=== PATIENT | female | born 1955 | race Caucasian/White ===

== ENCOUNTER 2020-09-24 14:26 | Inpatient (IN) | payer MEDICAID, MEDICARE ==
[~2020-09-24] VITALS: Ht 162.6 cm; Wt 98.9 kg
[2020-09-24] MEDS: ALBUTEROL 6.7GM HFA INHALER ORI SCH ×2 (00:24→20:25)
[2020-09-24] MEDS ORDERED: AZITHROMYCIN 500 MG in DEXT 5% WATER 250 ML IV SCH (14:45)
[2020-09-24] MEDS ORDERED: CEFTRIAXONE 1 G PREMIX 50 ML IV ONE (14:45)
[2020-09-24] MEDS ORDERED: LACTATED RINGERS 1,000 ML IV SCH ×2 (14:45)
[2020-09-24] MEDS ORDERED: DEXAMETHASONE 10 MG/ML VIAL IV ONE (15:00)
[2020-09-24 15:44] LABS: BASOPHILS % 0.6 % (0.0-2.0); EOSINOPHILS % 0.5 % (0.0-5.0); HEMATOCRIT. 40.5 % (36.0-48.0); LYMPHOCYTES % 18.3 % (20.0-50.0); MEAN CORPUSCULAR HEMOGLOBIN 31.8 pg (28.0-32.0); MEAN CORPUSCULAR VOLUME 91.9 fL (81.0-99.0); MEAN PLATELET VOLUME 9.9 fl (7.4-10.4); MONOCYTES % 4.8 % (2.0-8.0); NEUTROPHILS % 75.8 % (40.0-76.0); PLATELET 131 x1000/uL (130-400); RED BLOOD CELL COUNT 4.41 mill/uL (4.2-5.4); RED CELL DISTRIBUTION WIDTH 12.9 % (11.6-14.6)
[2020-09-24 15:51] LABS: CHLORIDE 96 mEq/L (98-107)
[2020-09-24 15:58] LABS: D-DIMER 1.71 mg/L FEU (<0.50); PROTHROMBIN TIME 10.4 sec (9.6-11.0)
[2020-09-24 16:00] LABS: CREATINE KINASE 55 IU/L (26-192)
[2020-09-24] MEDS ORDERED: ALBUTEROL 6.7GM HFA INHALER ORI PRN (18:45)
[2020-09-24] MEDS ORDERED: NOREPINEPHRINE 8 MG in DEXT 5% WATER 242 ML IV PRN (18:45)
[2020-09-24] MEDS ORDERED: DEXTROSE 50% WATER 50ML SYRINGE IV PRN (18:45)
[2020-09-24] MEDS ORDERED: ACETAMINOPHEN 325MG TABLET PO PRN (18:45)
[2020-09-24] MEDS ORDERED: NITROGLYCERIN 0.4MG TABLET SL SL PRN (18:45)
[2020-09-24] MEDS ORDERED: ENOXAPARIN 40MG/0.4ML SYR SUBCUT SCH (18:45)
[2020-09-24] MEDS ORDERED: CLONIDINE 0.1MG TABLET PO PRN (18:45)
[2020-09-24] MEDS ORDERED: ONDANSETRON HCL 4MG/2ML INJ IV PRN (18:45)
[2020-09-24 19:52] LABS: VITAMIN B12 SERUM 1999 pg/mL (211-911)
[2020-09-24 20:18] LABS: FOLIC ACID (FOLATE) SERUM > 20.00 ng/mL (>5.38)
[2020-09-24] MEDS ORDERED: ZOLPIDEM TARTRATE 5MG TABLET PO PRN (21:00)
[2020-09-24] MEDS: ENOXAPARIN 30MG/0.3ML SYR SUBCUT SCH (21:00)
[2020-09-24] MEDS: GUAIFENESIN/DM 600MG/30MG ER TAB 12HR PO SCH (21:57)
[2020-09-24] MEDS: FAMOTIDINE 20MG TABLET PO SCH (21:57)
[2020-09-24] MEDS: INSULIN LISPRO 100 UNITS/ML SUBCUT SCH (21:58)
[2020-09-24] MEDS: BLOOD SUGAR DIAGNOSTIC STRIP TEST SCH (21:58)
[2020-09-24] MEDS: ASCORBIC ACID 500 MG TABLET PO SCH (21:58)
[2020-09-24] MEDS ORDERED: INSULIN GLARGINE UD 100 UNITS/ML SYR SUBCUT SCH (22:00)
[2020-09-25] VITALS (57 sets, daily range): BP systolic 51–148; BP diastolic 25–129
[2020-09-25] MEDS: ALBUTEROL 6.7GM HFA INHALER ORI SCH ×2 (00:24→16:20)
[2020-09-25 01:07] LABS: CREATINE KINASE 45 IU/L (26-192)
[2020-09-25 01:08] LABS: CREATINE KINASE MB FRACTION < 1.0 ng/mL (0.5-3.6)
[2020-09-25 06:06] LABS: BASOPHILS % 0.2 % (0.0-2.0); EOSINOPHILS % 0.1 % (0.0-5.0); HEMATOCRIT. 39.6 % (36.0-48.0); HEMOGLOBIN. 13.5 g/dL (12.0-16.0); LYMPHOCYTES % 17.5 % (20.0-50.0); MEAN CORPUSCULAR HEMOGLOBIN 31.9 pg (28.0-32.0); MEAN CORPUSCULAR VOLUME 93.4 fL (81.0-99.0); MEAN PLATELET VOLUME 9.4 fl (7.4-10.4); MONOCYTES % 4.6 % (2.0-8.0); NEUTROPHILS % 77.6 % (40.0-76.0); PLATELET 111 x1000/uL (130-400); RED BLOOD CELL COUNT 4.24 mill/uL (4.2-5.4); RED CELL DISTRIBUTION WIDTH 13.3 % (11.6-14.6)
[2020-09-25 06:19] LABS: CHLORIDE 97 mEq/L (98-107)
[2020-09-25 06:24] LABS: PHOSPHORUS 3.1 mg/dL (2.5-4.9)
[2020-09-25] MEDS: BLOOD SUGAR DIAGNOSTIC STRIP TEST SCH ×4 (06:26→20:44)
[2020-09-25 06:27] LABS: CREATINE KINASE 49 IU/L (26-192)
[2020-09-25 06:30] LABS: CREATINE KINASE MB FRACTION < 1.0 ng/mL (0.5-3.6)
[2020-09-25] MEDS: INSULIN LISPRO 100 UNITS/ML SUBCUT SCH ×4 (06:30→21:05)
[2020-09-25 07:41] LABS: CLARITY URINE CLOUDY (CLEAR); COLOR URINE YELLOW (YELLOW); KETONES URINE NEGATIVE (NEGATIVE); LEUKOCYTE ESTERASE URINE 1+ (NEGATIVE); NITRITE URINE NEGATIVE (NEGATIVE); OCCULT BLOOD URINE NEGATIVE (NEGATIVE); PH URINE 5.5 (4.5-8.0); PROTEIN URINE NEGATIVE (NEGATIVE); SPECIFIC GRAVITY URINE 1.016 (1.005-1.030); UROBILINOGEN URINE 0.2 E.U./dL (0.2-1.0)
[2020-09-25] MEDS ORDERED: CEFTRIAXONE 1 G PREMIX 50 ML IV SCH (08:00)
[2020-09-25 08:07] LABS: *AMPHETAMINES SCREEN URINE NEGATIVE (NEGATIVE); *BARBITURATES SCREEN URINE NEGATIVE (NEGATIVE); *BENZODIAZEPINES SCREEN URINE NEGATIVE (NEGATIVE); *COCAINE SCREEN URINE NEGATIVE (NEGATIVE); CANNABINOID URINE SCREEN NEGATIVE (NEGATIVE)
[2020-09-25 08:08] LABS: METHADONE URINE SCREEN NEGATIVE (NEGATIVE); OPIATES URINE SCREEN NEGATIVE (NEGATIVE); PHENCYCLIDINE URINE SCREEN NEGATIVE (NEGATIVE)
[2020-09-25] MEDS: AZITHROMYCIN 500 MG in DEXT 5% WATER 250 ML IV SCH (08:29)
[2020-09-25] MEDS: DEXAMETHASONE 10 MG/ML VIAL IV SCH (08:30)
[2020-09-25] MEDS: ASCORBIC ACID 500 MG TABLET PO SCH ×2 (08:30→20:45)
[2020-09-25] MEDS: GUAIFENESIN/DM 600MG/30MG ER TAB 12HR PO SCH ×2 (08:30→20:45)
[2020-09-25] MEDS: ZINC SULFATE 220 MG ( 50 ) CAPSULE PO SCH (08:30)
[2020-09-25] MEDS: FAMOTIDINE 20MG TABLET PO SCH ×2 (08:30→20:45)
[2020-09-25] MEDS: ASPIRIN 325MG EC TABLET PO SCH (08:30)
[2020-09-25] MEDS: ENOXAPARIN 30MG/0.3ML SYR SUBCUT SCH ×2 (08:31→20:45)
[2020-09-25] MEDS: CHOLECALCIFEROL (D3) 1000 UNIT TABLET PO SCH (08:31)
[2020-09-25 08:32] LABS: BG BASE EXCESS -4.8 mmol/L (-2.0-2.0); BG CARBOXYHEMOGLOBIN 0.2 % (0.5-1.5); BG DEOXYHEMOGLOBIN 2.8 % (0.0-5.0); BG FRACTION INSPIRED OXYGEN 100; BG HCO3 ACT 20.3 mmol/L (22.0-26.0); BG METHEMOGLOBIN 0.3 % (0.0-1.5); BG OXYGEN SATURATION 97.2 % (92.0-98.5); BG OXYHEMOGLOBIN 96.7 % (94.0-97.0); BG PCO2 37.8 mmHg (35.0-45.0); BG PH 7.348 (7.350-7.450); BG PO2 92.8 mmHg (75.0-100.0); BG SAMPLE SITE RIGHT RADIAL; BG TOTAL HEMOGLOBIN 13.7 g/dL (12.0-18.0); BG VENT MODE VENT - CPAP
[2020-09-25] MEDS ORDERED: AZITHROMYCIN 500 MG in DEXT 5% WATER 250 ML IV SCH (09:00)
[2020-09-25] MEDS ORDERED: AMLO5TAB4 MT (11:00)
[2020-09-25] MEDS ORDERED: MICAR4 MT (11:00)
[2020-09-25] MEDS ORDERED: METF-874 MT (11:01)
[2020-09-25] MEDS: CEFTRIAXONE 1,000 MG in DEXTROSE 5% WATER 50 ML IV SCH (11:43)
[2020-09-25] MEDS: KETOROLAC 15MG/ML VIAL IV PRN (18:42)
[2020-09-25] MEDS ORDERED: INSULIN GLARGINE UD 100 UNITS/ML SYR SUBCUT SCH (22:00)
[2020-09-26] VITALS (82 sets, daily range): BP systolic 34–160; BP diastolic 24–85
[2020-09-26] MEDS: BLOOD SUGAR DIAGNOSTIC STRIP TEST SCH ×4 (05:42→20:38)
[2020-09-26] MEDS: INSULIN LISPRO 100 UNITS/ML SUBCUT SCH ×4 (06:06→21:41)
[2020-09-26 08:54] LABS: BG CARBOXYHEMOGLOBIN 0.4 % (0.5-1.5); BG DEOXYHEMOGLOBIN 22.7 % (0.0-5.0); BG FRACTION INSPIRED OXYGEN 100; BG HCO3 ACT 20.7 mmol/L (22.0-26.0); BG METHEMOGLOBIN 0.2 % (0.0-1.5); BG OXYGEN SATURATION 77.2 % (92.0-98.5); BG OXYHEMOGLOBIN 76.7 % (94.0-97.0); BG PCO2 45.3 mmHg (35.0-45.0); BG PH 7.277 (7.350-7.450); BG PO2 41.3 mmHg (75.0-100.0); BG SAMPLE SITE RIGHT RADIAL; BG TOTAL HEMOGLOBIN 13.1 g/dL (12.0-18.0); BG VENT MODE HIGH FLOW
[2020-09-26] MEDS ORDERED: LIDOCAINE HCL/PF 1% 2ML VIAL ONE (09:30)
[2020-09-26] MEDS: ASCORBIC ACID 500 MG TABLET PO SCH ×2 (09:45→21:37)
[2020-09-26] MEDS: CHOLECALCIFEROL (D3) 1000 UNIT TABLET PO SCH (09:45)
[2020-09-26] MEDS: GUAIFENESIN/DM 600MG/30MG ER TAB 12HR PO SCH ×2 (09:45→21:37)
[2020-09-26] MEDS: ZINC SULFATE 220 MG ( 50 ) CAPSULE PO SCH (09:45)
[2020-09-26] MEDS: ASPIRIN 325MG EC TABLET PO SCH (09:45)
[2020-09-26] MEDS: FAMOTIDINE 20MG TABLET PO SCH ×2 (09:45→21:37)
[2020-09-26] MEDS: ENOXAPARIN 30MG/0.3ML SYR SUBCUT SCH ×2 (09:45→21:38)
[2020-09-26] MEDS: AZITHROMYCIN 500 MG in DEXT 5% WATER 250 ML IV SCH (09:45)
[2020-09-26] MEDS: DEXAMETHASONE 10 MG/ML VIAL IV SCH (09:45)
[2020-09-26] MEDS: CEFTRIAXONE 1,000 MG in DEXTROSE 5% WATER 50 ML IV SCH (09:46)
[2020-09-26 10:51] LABS: BG BASE EXCESS -1.7 mmol/L (-2.0-2.0); BG CARBOXYHEMOGLOBIN 0.4 % (0.5-1.5); BG DEOXYHEMOGLOBIN 8.9 % (0.0-5.0); BG FRACTION INSPIRED OXYGEN 100; BG HCO3 ACT 23.5 mmol/L (22.0-26.0); BG METHEMOGLOBIN 0.3 % (0.0-1.5); BG OXYHEMOGLOBIN 90.4 % (94.0-97.0); BG PCO2 41.4 mmHg (35.0-45.0); BG PH 7.372 (7.350-7.450); BG PO2 60.3 mmHg (75.0-100.0); BG SAMPLE SITE RIGHT RADIAL; BG TOTAL HEMOGLOBIN 13.9 g/dL (12.0-18.0); BG VENT MODE MASK - BIPAP
[2020-09-26] MEDS: INSULIN GLARGINE UD 100 UNITS/ML SYR SUBCUT SCH ×2 (12:13→22:21)
[2020-09-26] MEDS: LORAZEPAM 0.5MG TABLET PO PRN (12:44)
[2020-09-26 12:45] LABS: HEMATOCRIT. 37.9 % (36.0-48.0); HEMOGLOBIN. 13.1 g/dL (12.0-16.0); MEAN CORPUSCULAR HEMOGLOBIN 31.8 pg (28.0-32.0); MEAN CORPUSCULAR VOLUME 92.2 fL (81.0-99.0); MEAN PLATELET VOLUME 9.3 fl (7.4-10.4); PLATELET 110 x1000/uL (130-400); RED BLOOD CELL COUNT 4.11 mill/uL (4.2-5.4)
[2020-09-26 12:54] LABS: CHLORIDE 98 mEq/L (98-107)
[2020-09-26 14:40] LABS: PLATELET ESTIMATE SLIGHTLY DECREASED
[2020-09-26] MEDS: DOPAMINE 400MG/250ML PREMIX 250 ML IV PRN (15:09)
[2020-09-27] VITALS (98 sets, daily range): BP systolic 100–167; BP diastolic 37–148
[2020-09-27] MEDS: DOPAMINE 400MG/250ML PREMIX 250 ML IV PRN ×2 (02:46→16:26)
[2020-09-27] MEDS: BLOOD SUGAR DIAGNOSTIC STRIP TEST SCH ×4 (05:37→21:33)
[2020-09-27 05:38] LABS: HEMATOCRIT. 40.1 % (36.0-48.0); HEMOGLOBIN. 14.2 g/dL (12.0-16.0); MEAN CORPUSCULAR HEMOGLOBIN 32.2 pg (28.0-32.0); MEAN CORPUSCULAR VOLUME 90.8 fL (81.0-99.0); MEAN PLATELET VOLUME 9.3 fl (7.4-10.4); PLATELET 118 x1000/uL (130-400); RED BLOOD CELL COUNT 4.42 mill/uL (4.2-5.4); RED CELL DISTRIBUTION WIDTH 12.9 % (11.6-14.6)
[2020-09-27 05:43] LABS: CHLORIDE 101 mEq/L (98-107)
[2020-09-27] MEDS: LORAZEPAM 0.5MG TABLET PO PRN ×2 (05:53→16:50)
[2020-09-27] MEDS: INSULIN LISPRO 100 UNITS/ML SUBCUT SCH ×4 (06:23→21:48)
[2020-09-27 07:37] LABS: NUCLEATED RED BLOOD CELLS 1 /100 WBC
[2020-09-27 07:38] LABS: PLATELET ESTIMATE DECREASED
[2020-09-27] MEDS: ENOXAPARIN 30MG/0.3ML SYR SUBCUT SCH ×2 (08:37→21:42)
[2020-09-27] MEDS: ZINC SULFATE 220 MG ( 50 ) CAPSULE PO SCH (08:37)
[2020-09-27] MEDS: CHOLECALCIFEROL (D3) 1000 UNIT TABLET PO SCH (08:37)
[2020-09-27] MEDS: ASPIRIN 81MG TABLET PO SCH (08:37)
[2020-09-27] MEDS: FAMOTIDINE 20MG TABLET PO SCH ×2 (08:37→20:51)
[2020-09-27] MEDS: DEXAMETHASONE 10 MG/ML VIAL IV SCH (08:37)
[2020-09-27] MEDS: GUAIFENESIN/DM 600MG/30MG ER TAB 12HR PO SCH ×2 (08:37→20:51)
[2020-09-27] MEDS: ASCORBIC ACID 500 MG TABLET PO SCH ×2 (08:37→20:51)
[2020-09-27] MEDS: ALBUTEROL 6.7GM HFA INHALER ORI SCH ×2 (08:37→15:00)
[2020-09-27] MEDS: AZITHROMYCIN 500 MG in DEXT 5% WATER 250 ML IV SCH (08:38)
[2020-09-27] MEDS: CEFTRIAXONE 1,000 MG in DEXTROSE 5% WATER 50 ML IV SCH (10:32)
[2020-09-27] MEDS: INSULIN GLARGINE UD 100 UNITS/ML SYR SUBCUT SCH ×2 (10:33→21:44)
[2020-09-27 12:22] LABS: BG BASE EXCESS 1.3 mmol/L (-2.0-2.0); BG CARBOXYHEMOGLOBIN 0.5 % (0.5-1.5); BG DEOXYHEMOGLOBIN 5.1 % (0.0-5.0); BG FRACTION INSPIRED OXYGEN 100; BG HCO3 ACT 26.5 mmol/L (22.0-26.0); BG METHEMOGLOBIN 0.2 % (0.0-1.5); BG OXYGEN SATURATION 94.9 % (92.0-98.5); BG OXYHEMOGLOBIN 94.2 % (94.0-97.0); BG PCO2 43.8 mmHg (35.0-45.0); BG PH 7.399 (7.350-7.450); BG PO2 73.6 mmHg (75.0-100.0); BG SAMPLE SITE RIGHT RADIAL; BG TOTAL HEMOGLOBIN 15.2 g/dL (12.0-18.0); BG VENT MODE MASK - BIPAP
[2020-09-28] VITALS (97 sets, daily range): BP systolic 70–166; BP diastolic 21–102
[2020-09-28] MEDS: ALBUTEROL 6.7GM HFA INHALER ORI SCH ×2 (01:35→21:00)
[2020-09-28] MEDS: DOPAMINE 400MG/250ML PREMIX 250 ML IV PRN ×2 (04:09→04:21)
[2020-09-28 04:59] LABS: HEMATOCRIT. 42.8 % (36.0-48.0); HEMOGLOBIN. 14.9 g/dL (12.0-16.0); MEAN CORPUSCULAR HEMOGLOBIN 31.7 pg (28.0-32.0); MEAN CORPUSCULAR VOLUME 91.4 fL (81.0-99.0); MEAN PLATELET VOLUME 8.6 fl (7.4-10.4); PLATELET 113 x1000/uL (130-400); RED BLOOD CELL COUNT 4.69 mill/uL (4.2-5.4); RED CELL DISTRIBUTION WIDTH 12.8 % (11.6-14.6)
[2020-09-28 05:36] LABS: CHLORIDE 104 mEq/L (98-107)
[2020-09-28] MEDS: BLOOD SUGAR DIAGNOSTIC STRIP TEST SCH ×4 (06:20→23:48)
[2020-09-28] MEDS: INSULIN LISPRO 100 UNITS/ML SUBCUT SCH ×4 (06:29→23:48)
[2020-09-28] MEDS: AZITHROMYCIN 500 MG in DEXT 5% WATER 250 ML IV SCH (07:29)
[2020-09-28 09:13] LABS: BG CARBOXYHEMOGLOBIN 0.5 % (0.5-1.5); BG DEOXYHEMOGLOBIN 3.8 % (0.0-5.0); BG FRACTION INSPIRED OXYGEN 100; BG HCO3 ACT 26.1 mmol/L (22.0-26.0); BG METHEMOGLOBIN 0.1 % (0.0-1.5); BG OXYGEN SATURATION 96.2 % (92.0-98.5); BG OXYHEMOGLOBIN 95.6 % (94.0-97.0); BG PCO2 43.3 mmHg (35.0-45.0); BG PH 7.398 (7.350-7.450); BG SAMPLE SITE RIGHT RADIAL; BG TOTAL HEMOGLOBIN 14.9 g/dL (12.0-18.0); BG VENT MODE MASK - BIPAP
[2020-09-28] MEDS: DEXAMETHASONE 10 MG/ML VIAL IV SCH (09:53)
[2020-09-28] MEDS: ZINC SULFATE 220 MG ( 50 ) CAPSULE PO SCH (09:54)
[2020-09-28] MEDS: ASCORBIC ACID 500 MG TABLET PO SCH ×2 (09:54→21:26)
[2020-09-28] MEDS: GUAIFENESIN/DM 600MG/30MG ER TAB 12HR PO SCH ×2 (09:54→21:26)
[2020-09-28] MEDS: FAMOTIDINE 20MG TABLET PO SCH ×2 (09:54→21:26)
[2020-09-28] MEDS: ENOXAPARIN 30MG/0.3ML SYR SUBCUT SCH ×2 (09:54→21:27)
[2020-09-28] MEDS: CEFTRIAXONE 1,000 MG in DEXTROSE 5% WATER 50 ML IV SCH (09:54)
[2020-09-28] MEDS: ASPIRIN 81MG TABLET PO SCH (09:55)
[2020-09-28] MEDS: INSULIN GLARGINE UD 100 UNITS/ML SYR SUBCUT SCH ×2 (09:56→21:44)
[2020-09-28] MEDS: CHOLECALCIFEROL (D3) 1000 UNIT TABLET PO SCH (10:14)
[2020-09-28 13:42] LABS: PLATELET ESTIMATE DECREASED
[2020-09-28] MEDS: LORAZEPAM 0.5MG TABLET PO PRN ×2 (14:34→23:58)
[2020-09-28] MEDS: KETOROLAC 15MG/ML VIAL IV PRN (17:43)
[2020-09-29] VITALS (85 sets, daily range): BP systolic 101–172; BP diastolic 50–84
[2020-09-29] MEDS: DOPAMINE 400MG/250ML PREMIX 250 ML IV PRN (01:56)
[2020-09-29] MEDS: BLOOD SUGAR DIAGNOSTIC STRIP TEST SCH ×4 (06:10→23:02)
[2020-09-29] MEDS: INSULIN LISPRO 100 UNITS/ML SUBCUT SCH ×4 (06:21→23:01)
[2020-09-29] MEDS: ALBUTEROL 6.7GM HFA INHALER ORI SCH ×3 (09:08→20:54)
[2020-09-29] MEDS: CHOLECALCIFEROL (D3) 1000 UNIT TABLET PO SCH (09:12)
[2020-09-29] MEDS: ZINC SULFATE 220 MG ( 50 ) CAPSULE PO SCH (09:12)
[2020-09-29] MEDS: GUAIFENESIN/DM 600MG/30MG ER TAB 12HR PO SCH ×2 (09:12→20:58)
[2020-09-29] MEDS: ASPIRIN 81MG TABLET PO SCH (09:12)
[2020-09-29] MEDS: FAMOTIDINE 20MG TABLET PO SCH ×2 (09:12→20:58)
[2020-09-29] MEDS: ENOXAPARIN 30MG/0.3ML SYR SUBCUT SCH ×2 (09:12→21:58)
[2020-09-29] MEDS: ASCORBIC ACID 500 MG TABLET PO SCH ×2 (09:13→20:58)
[2020-09-29] MEDS: DEXAMETHASONE 10 MG/ML VIAL IV SCH (09:13)
[2020-09-29] MEDS: INSULIN GLARGINE UD 100 UNITS/ML SYR SUBCUT SCH ×2 (09:15→22:58)
[2020-09-29 09:50] LABS: BG CARBOXYHEMOGLOBIN 0.8 % (0.5-1.5); BG DEOXYHEMOGLOBIN 5.7 % (0.0-5.0); BG FRACTION INSPIRED OXYGEN 100; BG HCO3 ACT 29.1 mmol/L (22.0-26.0); BG METHEMOGLOBIN 0.1 % (0.0-1.5); BG OXYGEN SATURATION 94.2 % (92.0-98.5); BG OXYHEMOGLOBIN 93.4 % (94.0-97.0); BG PCO2 45.2 mmHg (35.0-45.0); BG PH 7.426 (7.350-7.450); BG PO2 68.5 mmHg (75.0-100.0); BG SAMPLE SITE RIGHT RADIAL; BG TOTAL HEMOGLOBIN 14.2 g/dL (12.0-18.0); BG TOTAL RESPIRATORY RATE 31 b/min; BG VENT MODE MASK - BIPAP
[2020-09-29] MEDS ORDERED: COLCHICINE 0.6MG TABLET PO SCH (13:00)
[2020-09-29 13:20] LABS: HEMATOCRIT 40.4 % (36.0-48.0); HEMOGLOBIN 13.9 g/dL (12.0-16.0); MEAN CORPUSCULAR HEMOGLOBIN 31.6 pg (28.0-32.0); MEAN CORPUSCULAR VOLUME 91.8 fL (81.0-99.0); PLATELET 79 x1000/uL (130-400); RED CELL DISTRIBUTION WIDTH 13.3 % (11.6-14.6)
[2020-09-29 13:25] LABS: CHLORIDE 103 mEq/L (98-107)
[2020-09-29] MEDS: KETOROLAC 15MG/ML VIAL IV PRN (13:27)
[2020-09-29] MEDS ORDERED: LACTULOSE 20G/30ML UDC PO NR (14:00)
[2020-09-29] MEDS: LORAZEPAM 0.5MG TABLET PO PRN (16:38)
[2020-09-29] MEDS ORDERED: ENOXAPARIN 100MG/ML SYR SUBCUT SCH (18:00)
[2020-09-29 18:12] LABS: BG BASE EXCESS 0.9 mmol/L (-2.0-2.0); BG CARBOXYHEMOGLOBIN 0.9 % (0.5-1.5); BG FRACTION INSPIRED OXYGEN 100; BG HCO3 ACT 25.4 mmol/L (22.0-26.0); BG METHEMOGLOBIN 0.2 % (0.0-1.5); BG OXYGEN SATURATION 93.9 % (92.0-98.5); BG OXYHEMOGLOBIN 92.9 % (94.0-97.0); BG PCO2 40.2 mmHg (35.0-45.0); BG PH 7.419 (7.350-7.450); BG PO2 69.4 mmHg (75.0-100.0); BG SAMPLE SITE RIGHT RADIAL; BG TOTAL RESPIRATORY RATE 26 b/min; BG VENT MODE MASK - BIPAP
[2020-09-29] MEDS: COLCHICINE 0.6MG TABLET PO SCH (20:58)
[2020-09-30] VITALS (95 sets, daily range): BP systolic 103–152; BP diastolic 46–85
[2020-09-30] MEDS: ALBUTEROL 6.7GM HFA INHALER ORI SCH ×4 (01:40→21:31)
[2020-09-30] MEDS: LORAZEPAM 0.5MG TABLET PO PRN ×3 (02:00→13:25)
[2020-09-30] MEDS: BLOOD SUGAR DIAGNOSTIC STRIP TEST SCH ×4 (05:44→23:15)
[2020-09-30] MEDS: INSULIN LISPRO 100 UNITS/ML SUBCUT SCH ×4 (06:00→23:15)
[2020-09-30] MEDS: ENOXAPARIN 30MG/0.3ML SYR SUBCUT SCH ×2 (08:58→21:41)
[2020-09-30] MEDS: ASPIRIN 81MG TABLET PO SCH (08:58)
[2020-09-30] MEDS: ZINC SULFATE 220 MG ( 50 ) CAPSULE PO SCH (08:58)
[2020-09-30] MEDS: GUAIFENESIN/DM 600MG/30MG ER TAB 12HR PO SCH ×2 (08:58→21:40)
[2020-09-30] MEDS: ASCORBIC ACID 500 MG TABLET PO SCH ×2 (08:58→21:40)
[2020-09-30] MEDS: FAMOTIDINE 20MG TABLET PO SCH ×2 (08:58→21:41)
[2020-09-30] MEDS: COLCHICINE 0.6MG TABLET PO SCH ×2 (08:59→21:40)
[2020-09-30] MEDS: CHOLECALCIFEROL (D3) 1000 UNIT TABLET PO SCH (08:59)
[2020-09-30] MEDS: INSULIN GLARGINE UD 100 UNITS/ML SYR SUBCUT SCH ×2 (08:59→23:02)
[2020-09-30] MEDS: DEXAMETHASONE 10 MG/ML VIAL IV SCH (09:11)
[2020-09-30] MEDS ORDERED: LIDOCAINE HCL/PF 1% 2ML VIAL ONE (10:00)
[2020-09-30 10:15] LABS: BG BASE EXCESS 4.8 mmol/L (-2.0-2.0); BG CARBOXYHEMOGLOBIN 1.1 % (0.5-1.5); BG DEOXYHEMOGLOBIN 4.3 % (0.0-5.0); BG FRACTION INSPIRED OXYGEN 100; BG HCO3 ACT 30.2 mmol/L (22.0-26.0); BG METHEMOGLOBIN 0.2 % (0.0-1.5); BG OXYGEN SATURATION 95.6 % (92.0-98.5); BG OXYHEMOGLOBIN 94.4 % (94.0-97.0); BG PCO2 47.8 mmHg (35.0-45.0); BG PH 7.419 (7.350-7.450); BG PO2 77.5 mmHg (75.0-100.0); BG SAMPLE SITE RIGHT RADIAL; BG TOTAL HEMOGLOBIN 14.2 g/dL (12.0-18.0); BG VENT MODE MASK - BIPAP
[2020-09-30] MEDS: GUAIFENESIN 200MG/10ML SUGAR FREE UDC PO PRN ×2 (11:12→15:38)
[2020-09-30] MEDS ORDERED: IVERMECTIN 3 MG TABLET PO NR (15:00)
[2020-10-01] VITALS (75 sets, daily range): BP systolic 96–160; BP diastolic 49–115
[2020-10-01] MEDS: LORAZEPAM 0.5MG TABLET PO PRN (00:21)
[2020-10-01] MEDS: ALBUTEROL 6.7GM HFA INHALER ORI SCH ×4 (01:53→20:40)
[2020-10-01 05:03] LABS: HEMATOCRIT. 39.2 % (36.0-48.0); HEMOGLOBIN. 13.2 g/dL (12.0-16.0); MEAN CORPUSCULAR HEMOGLOBIN 31.8 pg (28.0-32.0); MEAN CORPUSCULAR VOLUME 94.5 fL (81.0-99.0); MEAN PLATELET VOLUME 9.3 fl (7.4-10.4); PLATELET 63 x1000/uL (130-400); RED BLOOD CELL COUNT 4.15 mill/uL (4.2-5.4); RED CELL DISTRIBUTION WIDTH 13.2 % (11.6-14.6)
[2020-10-01 05:14] LABS: CHLORIDE 104 mEq/L (98-107)
[2020-10-01] MEDS: BLOOD SUGAR DIAGNOSTIC STRIP TEST SCH ×3 (05:40→17:53)
[2020-10-01] MEDS: INSULIN LISPRO 100 UNITS/ML SUBCUT SCH ×3 (06:34→18:05)
[2020-10-01] MEDS: GUAIFENESIN/DM 600MG/30MG ER TAB 12HR PO SCH ×2 (09:20→23:27)
[2020-10-01] MEDS: GUAIFENESIN 200MG/10ML SUGAR FREE UDC PO PRN (09:20)
[2020-10-01] MEDS: ENOXAPARIN 30MG/0.3ML SYR SUBCUT SCH ×2 (09:20→23:27)
[2020-10-01] MEDS: COLCHICINE 0.6MG TABLET PO SCH ×2 (09:20→21:00)
[2020-10-01] MEDS: CHOLECALCIFEROL (D3) 1000 UNIT TABLET PO SCH (09:21)
[2020-10-01] MEDS: ASCORBIC ACID 500 MG TABLET PO SCH ×2 (09:21→23:27)
[2020-10-01] MEDS: FAMOTIDINE 20MG TABLET PO SCH ×2 (09:21→21:00)
[2020-10-01] MEDS: ASPIRIN 81MG TABLET PO SCH (09:21)
[2020-10-01] MEDS: ZINC SULFATE 220 MG ( 50 ) CAPSULE PO SCH (09:21)
[2020-10-01] MEDS: DEXAMETHASONE 10 MG/ML VIAL IV SCH (09:28)
[2020-10-01] MEDS: INSULIN GLARGINE UD 100 UNITS/ML SYR SUBCUT SCH ×2 (09:29→23:30)
[2020-10-01 10:11] LABS: BG CARBOXYHEMOGLOBIN 1.1 % (0.5-1.5); BG DEOXYHEMOGLOBIN 7.8 % (0.0-5.0); BG FRACTION INSPIRED OXYGEN 100; BG HCO3 ACT 27.2 mmol/L (22.0-26.0); BG METHEMOGLOBIN 0.3 % (0.0-1.5); BG OXYGEN SATURATION 92.1 % (92.0-98.5); BG OXYHEMOGLOBIN 90.8 % (94.0-97.0); BG PCO2 44.7 mmHg (35.0-45.0); BG PH 7.402 (7.350-7.450); BG PO2 63.2 mmHg (75.0-100.0); BG SAMPLE SITE RIGHT BRACHIAL; BG TOTAL HEMOGLOBIN 13.8 g/dL (12.0-18.0); BG TOTAL RESPIRATORY RATE 32 b/min; BG VENT MODE MASK - BIPAP
[2020-10-01 12:43] LABS: PLATELET ESTIMATE DECREASED
[2020-10-01] MEDS: ACETAMINOPHEN 325MG TABLET PO PRN (23:28)
[2020-10-02] VITALS (65 sets, daily range): BP systolic 94–174; BP diastolic 47–110
[2020-10-02] MEDS: ALBUTEROL 6.7GM HFA INHALER ORI SCH ×3 (02:09→20:47)
[2020-10-02] MEDS: INSULIN LISPRO 100 UNITS/ML SUBCUT SCH ×4 (06:00→17:38)
[2020-10-02] MEDS: BLOOD SUGAR DIAGNOSTIC STRIP TEST SCH ×4 (06:00→17:33)
[2020-10-02] MEDS: GUAIFENESIN 200MG/10ML SUGAR FREE UDC PO PRN (07:00)
[2020-10-02] MEDS: ACETAMINOPHEN 325MG TABLET PO PRN ×3 (07:01→18:52)
[2020-10-02] MEDS: ZINC SULFATE 220 MG ( 50 ) CAPSULE PO SCH (08:20)
[2020-10-02] MEDS: GUAIFENESIN/DM 600MG/30MG ER TAB 12HR PO SCH ×2 (08:20→20:38)
[2020-10-02] MEDS: ASPIRIN 81MG TABLET PO SCH (08:21)
[2020-10-02] MEDS: FAMOTIDINE 20MG TABLET PO SCH ×2 (08:21→20:38)
[2020-10-02] MEDS: COLCHICINE 0.6MG TABLET PO SCH ×2 (08:21→20:50)
[2020-10-02] MEDS: DEXAMETHASONE 10 MG/ML VIAL IV SCH (08:22)
[2020-10-02] MEDS: CHOLECALCIFEROL (D3) 1000 UNIT TABLET PO SCH (08:22)
[2020-10-02] MEDS: ASCORBIC ACID 500 MG TABLET PO SCH ×2 (08:57→20:39)
[2020-10-02] MEDS: ENOXAPARIN 30MG/0.3ML SYR SUBCUT SCH ×2 (09:00→20:39)
[2020-10-02] MEDS: INSULIN GLARGINE UD 100 UNITS/ML SYR SUBCUT SCH ×2 (09:33→22:30)
[2020-10-02 12:47] LABS: BG CARBOXYHEMOGLOBIN 1.2 % (0.5-1.5); BG DEOXYHEMOGLOBIN 6.7 % (0.0-5.0); BG FRACTION INSPIRED OXYGEN 100; BG HCO3 ACT 27.7 mmol/L (22.0-26.0); BG METHEMOGLOBIN 0.2 % (0.0-1.5); BG OXYGEN SATURATION 93.2 % (92.0-98.5); BG OXYHEMOGLOBIN 91.9 % (94.0-97.0); BG PH 7.388 (7.350-7.450); BG PO2 67.3 mmHg (75.0-100.0); BG SAMPLE SITE RIGHT BRACHIAL; BG TOTAL HEMOGLOBIN 14.7 g/dL (12.0-18.0); BG TOTAL RESPIRATORY RATE 35 b/min; BG VENT MODE MASK - BIPAP
[2020-10-02 13:39] LABS: HEMATOCRIT. 40.9 % (36.0-48.0); HEMOGLOBIN. 13.7 g/dL (12.0-16.0); MEAN CORPUSCULAR HEMOGLOBIN 31.1 pg (28.0-32.0); MEAN CORPUSCULAR VOLUME 92.4 fL (81.0-99.0); MEAN PLATELET VOLUME 9.4 fl (7.4-10.4); PLATELET 77 x1000/uL (130-400); RED BLOOD CELL COUNT 4.42 mill/uL (4.2-5.4); RED CELL DISTRIBUTION WIDTH 13.3 % (11.6-14.6)
[2020-10-02 13:45] LABS: CHLORIDE 106 mEq/L (98-107)
[2020-10-02 14:34] LABS: PLATELET ESTIMATE DECREASED
[2020-10-02] MEDS ORDERED: IVERMECTIN 3 MG TABLET PO NR (15:00)
[2020-10-02] MEDS: DOCUSATE SODIUM 100MG CAPSULE PO PRN (18:52)
[2020-10-02] MEDS: DOPAMINE 400MG/250ML PREMIX 250 ML IV PRN (21:01)
[2020-10-02] MEDS ORDERED: CLONIDINE 0.1MG TABLET PO PRN (22:15)
[2020-10-02] MEDS: MORPHINE SULFATE 2 MG/ML CPJ (NOT FOR IM USE) IV PRN (22:30)
[2020-10-03] VITALS (69 sets, daily range): BP systolic 79–167; BP diastolic 28–97
[2020-10-03] MEDS: INSULIN LISPRO 100 UNITS/ML SUBCUT SCH ×4 (00:43→18:39)
[2020-10-03] MEDS: ALBUTEROL 6.7GM HFA INHALER ORI SCH ×4 (02:15→22:15)
[2020-10-03] MEDS: LORAZEPAM 2MG/ML CPJ IV PRN ×3 (03:00→20:35)
[2020-10-03] MEDS: DOPAMINE 400MG/250ML PREMIX 250 ML IV PRN (05:14)
[2020-10-03 05:54] LABS: CHLORIDE 102 mEq/L (98-107)
[2020-10-03] MEDS: BLOOD SUGAR DIAGNOSTIC STRIP TEST SCH ×4 (06:00→18:33)
[2020-10-03 06:14] LABS: HEMATOCRIT 44.5 % (36.0-48.0); HEMOGLOBIN 14.7 g/dL (12.0-16.0); MEAN CORPUSCULAR HEMOGLOBIN 30.8 pg (28.0-32.0); MEAN CORPUSCULAR VOLUME 93.4 fL (81.0-99.0); PLATELET 109 x1000/uL (130-400); RED BLOOD CELL COUNT 4.77 mill/uL (4.2-5.4)
[2020-10-03] MEDS: ASPIRIN 81MG TABLET PO SCH (08:48)
[2020-10-03] MEDS: GUAIFENESIN/DM 600MG/30MG ER TAB 12HR PO SCH ×2 (08:48→20:34)
[2020-10-03] MEDS: ZINC SULFATE 220 MG ( 50 ) CAPSULE PO SCH (08:49)
[2020-10-03] MEDS: ASCORBIC ACID 500 MG TABLET PO SCH ×2 (08:49→20:34)
[2020-10-03] MEDS: CHOLECALCIFEROL (D3) 1000 UNIT TABLET PO SCH (08:49)
[2020-10-03] MEDS: FAMOTIDINE 20MG TABLET PO SCH ×2 (08:49→20:34)
[2020-10-03] MEDS: DEXAMETHASONE 10 MG/ML VIAL IV SCH (08:49)
[2020-10-03] MEDS: ENOXAPARIN 30MG/0.3ML SYR SUBCUT SCH ×2 (08:50→20:34)
[2020-10-03] MEDS: COLCHICINE 0.6MG TABLET PO SCH ×2 (08:50→20:35)
[2020-10-03] MEDS: INSULIN GLARGINE UD 100 UNITS/ML SYR SUBCUT SCH ×2 (09:50→22:25)
[2020-10-03 10:31] LABS: BG CARBOXYHEMOGLOBIN 0.8 % (0.5-1.5); BG DEOXYHEMOGLOBIN 5.1 % (0.0-5.0); BG HCO3 ACT 29.1 mmol/L (22.0-26.0); BG METHEMOGLOBIN 0.2 % (0.0-1.5); BG OXYGEN SATURATION 94.8 % (92.0-98.5); BG OXYHEMOGLOBIN 93.9 % (94.0-97.0); BG PCO2 50.1 mmHg (35.0-45.0); BG PH 7.382 (7.350-7.450); BG PO2 76.5 mmHg (75.0-100.0); BG SAMPLE SITE RIGHT BRACHIAL; BG TOTAL HEMOGLOBIN 14.9 g/dL (12.0-18.0); BG VENT MODE MASK - BIPAP
[2020-10-03] MEDS: METRONIDAZOLE 500MG TABLET PO SCH ×2 (14:18→22:24)
[2020-10-03 14:27] LABS: BG BASE EXCESS 2.7 mmol/L (-2.0-2.0); BG CARBOXYHEMOGLOBIN 1.4 % (0.5-1.5); BG DEOXYHEMOGLOBIN 7.7 % (0.0-5.0); BG METHEMOGLOBIN 0.2 % (0.0-1.5); BG OXYGEN SATURATION 92.2 % (92.0-98.5); BG OXYHEMOGLOBIN 90.7 % (94.0-97.0); BG PCO2 50.8 mmHg (35.0-45.0); BG PH 7.374 (7.350-7.450); BG PO2 64.2 mmHg (75.0-100.0); BG SAMPLE SITE RIGHT RADIAL; BG TOTAL HEMOGLOBIN 15.1 g/dL (12.0-18.0); BG VENT MODE MASK - BIPAP
[2020-10-03] MEDS: GUAIFENESIN 200MG/10ML SUGAR FREE UDC PO PRN (20:34)
[2020-10-04] VITALS (57 sets, daily range): BP systolic 61–180; BP diastolic 36–79
[2020-10-04] MEDS: INSULIN LISPRO 100 UNITS/ML SUBCUT SCH ×4 (00:52→18:08)
[2020-10-04] MEDS: ALBUTEROL 6.7GM HFA INHALER ORI SCH (02:09)
[2020-10-04] MEDS ORDERED: ALBUTEROL (0.083%) 2.5MG/3ML NEB HHN PRN (02:15)
[2020-10-04 05:38] LABS: HEMATOCRIT. 41.2 % (36.0-48.0); HEMOGLOBIN. 13.8 g/dL (12.0-16.0); MEAN CORPUSCULAR HEMOGLOBIN 31.8 pg (28.0-32.0); MEAN PLATELET VOLUME 9.8 fl (7.4-10.4); PLATELET 69 x1000/uL (130-400); RED BLOOD CELL COUNT 4.34 mill/uL (4.2-5.4); RED CELL DISTRIBUTION WIDTH 13.3 % (11.6-14.6)
[2020-10-04 05:50] LABS: CHLORIDE 107 mEq/L (98-107)
[2020-10-04] MEDS: BLOOD SUGAR DIAGNOSTIC STRIP TEST SCH ×4 (06:00→18:07)
[2020-10-04] MEDS: METRONIDAZOLE 500MG TABLET PO SCH ×3 (06:07→21:45)
[2020-10-04] MEDS: MAGNESIUM/ALUMINUM HYDROXIDE/SIMETHICONE 30ML UDC PO PRN (08:05)
[2020-10-04] MEDS: ASPIRIN 81MG TABLET PO SCH (08:06)
[2020-10-04] MEDS: CHOLECALCIFEROL (D3) 1000 UNIT TABLET PO SCH (08:06)
[2020-10-04] MEDS: DOCUSATE SODIUM 100MG CAPSULE PO PRN (08:06)
[2020-10-04] MEDS: ENOXAPARIN 30MG/0.3ML SYR SUBCUT SCH ×2 (08:06→21:00)
[2020-10-04] MEDS: GUAIFENESIN/DM 600MG/30MG ER TAB 12HR PO SCH ×2 (08:06→20:18)
[2020-10-04] MEDS: FAMOTIDINE 20MG TABLET PO SCH ×2 (08:07→20:16)
[2020-10-04] MEDS: ZINC SULFATE 220 MG ( 50 ) CAPSULE PO SCH (08:07)
[2020-10-04] MEDS: ASCORBIC ACID 500 MG TABLET PO SCH ×2 (08:07→20:16)
[2020-10-04] MEDS: COLCHICINE 0.6MG TABLET PO SCH ×2 (08:08→20:16)
[2020-10-04] MEDS: ALBUTEROL (0.083%) 2.5MG/3ML NEB HHN SCH ×3 (08:26→21:19)
[2020-10-04] MEDS ORDERED: DEXAMETHASONE 4MG TABLET PO SCH (09:00)
[2020-10-04 09:36] LABS: BG BASE EXCESS 4.7 mmol/L (-2.0-2.0); BG CARBOXYHEMOGLOBIN 0.9 % (0.5-1.5); BG DEOXYHEMOGLOBIN 5.1 % (0.0-5.0); BG FRACTION INSPIRED OXYGEN 100; BG HCO3 ACT 30.9 mmol/L (22.0-26.0); BG METHEMOGLOBIN 0.3 % (0.0-1.5); BG OXYGEN SATURATION 94.8 % (92.0-98.5); BG OXYHEMOGLOBIN 93.7 % (94.0-97.0); BG PCO2 51.7 mmHg (35.0-45.0); BG PH 7.394 (7.350-7.450); BG PO2 75.3 mmHg (75.0-100.0); BG SAMPLE SITE RIGHT BRACHIAL; BG TOTAL HEMOGLOBIN 14.1 g/dL (12.0-18.0); BG TOTAL RESPIRATORY RATE 38 b/min; BG VENT MODE MASK - BIPAP
[2020-10-04] MEDS: INSULIN GLARGINE UD 100 UNITS/ML SYR SUBCUT SCH ×2 (10:52→21:49)
[2020-10-04] MEDS: METHYLPREDNISOLONE SOD SUCC 40 MG/ML VIAL IV SCH ×2 (14:06→21:45)
[2020-10-04 14:07] LABS: PLATELET ESTIMATE DECREASED
[2020-10-04] MEDS: LORAZEPAM 2MG/ML CPJ IV PRN (19:28)
[2020-10-05] VITALS (87 sets, daily range): BP systolic 102–161; BP diastolic 46–87
[2020-10-05] MEDS: BLOOD SUGAR DIAGNOSTIC STRIP TEST SCH ×4 (00:14→17:12)
[2020-10-05] MEDS: INSULIN LISPRO 100 UNITS/ML SUBCUT SCH ×4 (00:46→17:13)
[2020-10-05] MEDS: ALBUTEROL (0.083%) 2.5MG/3ML NEB HHN SCH ×4 (01:32→20:34)
[2020-10-05 05:12] LABS: CHLORIDE 109 mEq/L (98-107)
[2020-10-05 05:16] LABS: HEMATOCRIT. 38.8 % (36.0-48.0); MEAN CORPUSCULAR HEMOGLOBIN 31.8 pg (28.0-32.0); MEAN CORPUSCULAR VOLUME 94.8 fL (81.0-99.0); MEAN PLATELET VOLUME 10.2 fl (7.4-10.4); PLATELET 71 x1000/uL (130-400); RED CELL DISTRIBUTION WIDTH 13.6 % (11.6-14.6)
[2020-10-05] MEDS: METHYLPREDNISOLONE SOD SUCC 40 MG/ML VIAL IV SCH ×3 (06:06→21:04)
[2020-10-05] MEDS: METRONIDAZOLE 500MG TABLET PO SCH ×3 (06:07→21:04)
[2020-10-05] MEDS: CHOLECALCIFEROL (D3) 1000 UNIT TABLET PO SCH (08:55)
[2020-10-05] MEDS: ENOXAPARIN 30MG/0.3ML SYR SUBCUT SCH ×2 (08:55→20:42)
[2020-10-05] MEDS: MAGNESIUM/ALUMINUM HYDROXIDE/SIMETHICONE 30ML UDC PO PRN (08:55)
[2020-10-05] MEDS: COLCHICINE 0.6MG TABLET PO SCH ×2 (08:56→21:04)
[2020-10-05] MEDS: DOCUSATE SODIUM 100MG CAPSULE PO PRN (08:56)
[2020-10-05] MEDS: ASCORBIC ACID 500 MG TABLET PO SCH ×2 (08:56→21:04)
[2020-10-05] MEDS: ASPIRIN 81MG TABLET PO SCH (08:56)
[2020-10-05] MEDS: ZINC SULFATE 220 MG ( 50 ) CAPSULE PO SCH (08:56)
[2020-10-05] MEDS: GUAIFENESIN/DM 600MG/30MG ER TAB 12HR PO SCH ×2 (08:56→21:04)
[2020-10-05] MEDS: FAMOTIDINE 20MG TABLET PO SCH ×2 (08:56→21:04)
[2020-10-05] MEDS: INSULIN GLARGINE UD 100 UNITS/ML SYR SUBCUT SCH ×2 (09:25→21:12)
[2020-10-05 09:26] LABS: BG BASE EXCESS 0.2 mmol/L (-2.0-2.0); BG CARBOXYHEMOGLOBIN 1.1 % (0.5-1.5); BG FRACTION INSPIRED OXYGEN 100; BG HCO3 ACT 26.1 mmol/L (22.0-26.0); BG METHEMOGLOBIN 0.3 % (0.0-1.5); BG OXYHEMOGLOBIN 95.6 % (94.0-97.0); BG PH 7.362 (7.350-7.450); BG PO2 94.7 mmHg (75.0-100.0); BG SAMPLE SITE RIGHT RADIAL; BG TOTAL HEMOGLOBIN 14.3 g/dL (12.0-18.0); BG TOTAL RESPIRATORY RATE 45 b/min; BG VENT MODE MASK - BIPAP
[2020-10-05 13:15] LABS: PLATELET ESTIMATE DECREASED
[2020-10-05] MEDS: LORAZEPAM 2MG/ML CPJ IV PRN (16:55)
[2020-10-06] VITALS (60 sets, daily range): BP systolic 90–148; BP diastolic 43–80
[2020-10-06] MEDS: BLOOD SUGAR DIAGNOSTIC STRIP TEST SCH ×5 (00:53→23:17)
[2020-10-06] MEDS: INSULIN LISPRO 100 UNITS/ML SUBCUT SCH ×5 (01:00→23:16)
[2020-10-06] MEDS: ALBUTEROL (0.083%) 2.5MG/3ML NEB HHN SCH ×4 (01:19→20:03)
[2020-10-06 04:57] LABS: HEMATOCRIT. 43.1 % (36.0-48.0); HEMOGLOBIN. 14.1 g/dL (12.0-16.0); MEAN CORPUSCULAR HEMOGLOBIN 30.8 pg (28.0-32.0); MEAN PLATELET VOLUME 9.8 fl (7.4-10.4); PLATELET 108 x1000/uL (130-400); RED BLOOD CELL COUNT 4.59 mill/uL (4.2-5.4); RED CELL DISTRIBUTION WIDTH 13.4 % (11.6-14.6)
[2020-10-06 05:04] LABS: CHLORIDE 110 mEq/L (98-107)
[2020-10-06] MEDS: METRONIDAZOLE 500MG TABLET PO SCH ×3 (05:47→21:31)
[2020-10-06] MEDS: METHYLPREDNISOLONE SOD SUCC 40 MG/ML VIAL IV SCH ×3 (05:47→21:31)
[2020-10-06 07:32] LABS: PLATELET ESTIMATE DECREASED
[2020-10-06] MEDS: FAMOTIDINE 20MG TABLET PO SCH ×2 (08:56→20:18)
[2020-10-06] MEDS: ASPIRIN 81MG TABLET PO SCH (08:56)
[2020-10-06] MEDS: CHOLECALCIFEROL (D3) 1000 UNIT TABLET PO SCH (08:56)
[2020-10-06] MEDS: GUAIFENESIN/DM 600MG/30MG ER TAB 12HR PO SCH ×2 (08:57→20:18)
[2020-10-06] MEDS: ENOXAPARIN 30MG/0.3ML SYR SUBCUT SCH ×2 (08:57→20:19)
[2020-10-06] MEDS: ZINC SULFATE 220 MG ( 50 ) CAPSULE PO SCH (08:57)
[2020-10-06] MEDS: ASCORBIC ACID 500 MG TABLET PO SCH ×2 (08:57→20:18)
[2020-10-06] MEDS: COLCHICINE 0.6MG TABLET PO SCH ×2 (08:57→20:18)
[2020-10-06] MEDS: INSULIN GLARGINE UD 100 UNITS/ML SYR SUBCUT SCH ×2 (10:41→23:16)
[2020-10-06] MEDS: LORAZEPAM 2MG/ML CPJ IV PRN ×2 (10:41→16:56)
[2020-10-06 11:09] LABS: BG BASE EXCESS 1.7 mmol/L (-2.0-2.0); BG CARBOXYHEMOGLOBIN 0.8 % (0.5-1.5); BG DEOXYHEMOGLOBIN 5.5 % (0.0-5.0); BG FRACTION INSPIRED OXYGEN 90; BG HCO3 ACT 26.8 mmol/L (22.0-26.0); BG METHEMOGLOBIN 0.3 % (0.0-1.5); BG OXYGEN SATURATION 94.4 % (92.0-98.5); BG OXYHEMOGLOBIN 93.4 % (94.0-97.0); BG PH 7.403 (7.350-7.450); BG PO2 71.9 mmHg (75.0-100.0); BG SAMPLE SITE RIGHT BRACHIAL; BG TOTAL HEMOGLOBIN 14.5 g/dL (12.0-18.0); BG TOTAL RESPIRATORY RATE 30 b/min; BG VENT MODE MASK - BIPAP
[2020-10-06] MEDS: MORPHINE SULFATE 2 MG/ML CPJ (NOT FOR IM USE) IV PRN (14:06)
[2020-10-07] VITALS (24 sets, daily range): BP systolic 91–150; BP diastolic 49–85
[2020-10-07] MEDS: ALBUTEROL (0.083%) 2.5MG/3ML NEB HHN SCH ×4 (00:24→20:22)
[2020-10-07] MEDS: GUAIFENESIN 200MG/10ML SUGAR FREE UDC PO PRN (05:02)
[2020-10-07] MEDS: METHYLPREDNISOLONE SOD SUCC 40 MG/ML VIAL IV SCH ×3 (05:02→21:57)
[2020-10-07] MEDS: METRONIDAZOLE 500MG TABLET PO SCH ×3 (05:02→21:57)
[2020-10-07 05:40] LABS: HEMOGLOBIN. 14.5 g/dL (12.0-16.0); MEAN CORPUSCULAR HEMOGLOBIN 30.5 pg (28.0-32.0); MEAN CORPUSCULAR VOLUME 94.8 fL (81.0-99.0); MEAN PLATELET VOLUME 9.8 fl (7.4-10.4); PLATELET 147 x1000/uL (130-400); RED BLOOD CELL COUNT 4.75 mill/uL (4.2-5.4); RED CELL DISTRIBUTION WIDTH 13.7 % (11.6-14.6)
[2020-10-07 05:42] LABS: CHLORIDE 114 mEq/L (98-107)
[2020-10-07] MEDS: LORAZEPAM 2MG/ML CPJ IV PRN ×2 (06:28→20:45)
[2020-10-07] MEDS: BLOOD SUGAR DIAGNOSTIC STRIP TEST SCH ×3 (06:37→17:47)
[2020-10-07] MEDS: INSULIN LISPRO 100 UNITS/ML SUBCUT SCH ×3 (06:38→17:47)
[2020-10-07 08:25] LABS: BG BASE EXCESS 2.6 mmol/L (-2.0-2.0); BG CARBOXYHEMOGLOBIN 0.1 % (0.5-1.5); BG DEOXYHEMOGLOBIN 5.5 % (0.0-5.0); BG FRACTION INSPIRED OXYGEN 90; BG HCO3 ACT 27.9 mmol/L (22.0-26.0); BG METHEMOGLOBIN 0.1 % (0.0-1.5); BG OXYGEN SATURATION 94.5 % (92.0-98.5); BG OXYHEMOGLOBIN 94.3 % (94.0-97.0); BG PCO2 45.6 mmHg (35.0-45.0); BG PH 7.405 (7.350-7.450); BG SAMPLE SITE RIGHT RADIAL; BG TOTAL HEMOGLOBIN 15.8 g/dL (12.0-18.0); BG VENT MODE MASK - BIPAP
[2020-10-07] MEDS: ENOXAPARIN 30MG/0.3ML SYR SUBCUT SCH (09:21)
[2020-10-07] MEDS: ASCORBIC ACID 500 MG TABLET PO SCH ×2 (09:21→20:57)
[2020-10-07] MEDS: ZINC SULFATE 220 MG ( 50 ) CAPSULE PO SCH (09:22)
[2020-10-07] MEDS: ASPIRIN 81MG TABLET PO SCH (09:22)
[2020-10-07] MEDS: CHOLECALCIFEROL (D3) 1000 UNIT TABLET PO SCH (09:22)
[2020-10-07] MEDS: COLCHICINE 0.6MG TABLET PO SCH ×2 (09:22→20:56)
[2020-10-07] MEDS: GUAIFENESIN/DM 600MG/30MG ER TAB 12HR PO SCH ×2 (09:22→20:57)
[2020-10-07] MEDS: FAMOTIDINE 20MG TABLET PO SCH ×2 (09:22→20:57)
[2020-10-07] MEDS: INSULIN GLARGINE UD 100 UNITS/ML SYR SUBCUT SCH ×2 (09:35→22:00)
[2020-10-07 11:13] LABS: PLATELET ESTIMATE NORMAL
[2020-10-07] MEDS: LEVOFLOXACIN 500MG PREMIX 100 ML IV SCH (16:02)
[2020-10-07 17:09] LABS: CLARITY URINE CLEAR (CLEAR); COLOR URINE YELLOW (YELLOW); KETONES URINE NEGATIVE (NEGATIVE); LEUKOCYTE ESTERASE URINE 1+ (NEGATIVE); NITRITE URINE NEGATIVE (NEGATIVE); OCCULT BLOOD URINE 2+ (NEGATIVE); PROTEIN URINE TRACE (NEGATIVE)
[2020-10-08] VITALS (23 sets, daily range): BP systolic 102–148; BP diastolic 43–84
[2020-10-08] MEDS: BLOOD SUGAR DIAGNOSTIC STRIP TEST SCH ×3 (00:13→11:58)
[2020-10-08] MEDS: INSULIN LISPRO 100 UNITS/ML SUBCUT SCH ×4 (00:14→17:44)
[2020-10-08] MEDS: ALBUTEROL (0.083%) 2.5MG/3ML NEB HHN SCH ×4 (02:21→20:26)
[2020-10-08] MEDS: LORAZEPAM 2MG/ML CPJ IV PRN ×2 (03:14→21:45)
[2020-10-08] MEDS: METHYLPREDNISOLONE SOD SUCC 40 MG/ML VIAL IV SCH ×2 (06:30→20:11)
[2020-10-08] MEDS: METRONIDAZOLE 500MG TABLET PO SCH ×2 (06:30→14:00)
[2020-10-08 06:42] LABS: HEMATOCRIT. 44.7 % (36.0-48.0); HEMOGLOBIN. 14.7 g/dL (12.0-16.0); MEAN CORPUSCULAR HEMOGLOBIN 31.1 pg (28.0-32.0); MEAN CORPUSCULAR VOLUME 94.4 fL (81.0-99.0); PLATELET 150 x1000/uL (130-400); RED BLOOD CELL COUNT 4.74 mill/uL (4.2-5.4); RED CELL DISTRIBUTION WIDTH 13.8 % (11.6-14.6)
[2020-10-08 06:47] LABS: CHLORIDE 116 mEq/L (98-107)
[2020-10-08 08:30] LABS: BG BASE EXCESS 4.1 mmol/L (-2.0-2.0); BG CARBOXYHEMOGLOBIN 0.7 % (0.5-1.5); BG DEOXYHEMOGLOBIN 5.5 % (0.0-5.0); BG FRACTION INSPIRED OXYGEN 100; BG HCO3 ACT 29.5 mmol/L (22.0-26.0); BG METHEMOGLOBIN 0.2 % (0.0-1.5); BG OXYGEN SATURATION 94.5 % (92.0-98.5); BG OXYHEMOGLOBIN 93.6 % (94.0-97.0); BG PH 7.416 (7.350-7.450); BG PO2 72.5 mmHg (75.0-100.0); BG SAMPLE SITE RIGHT BRACHIAL; BG TOTAL HEMOGLOBIN 15.9 g/dL (12.0-18.0); BG TOTAL RESPIRATORY RATE 32 b/min; BG VENT MODE MASK - BIPAP
[2020-10-08] MEDS: ZINC SULFATE 220 MG ( 50 ) CAPSULE PO SCH (08:39)
[2020-10-08] MEDS: GUAIFENESIN/DM 600MG/30MG ER TAB 12HR PO SCH ×2 (08:39→20:07)
[2020-10-08] MEDS: CHOLECALCIFEROL (D3) 1000 UNIT TABLET PO SCH (08:39)
[2020-10-08] MEDS: FAMOTIDINE 20MG TABLET PO SCH ×2 (08:39→20:07)
[2020-10-08] MEDS: ASCORBIC ACID 500 MG TABLET PO SCH ×2 (08:39→20:07)
[2020-10-08] MEDS: ASPIRIN 81MG TABLET PO SCH (08:39)
[2020-10-08] MEDS: COLCHICINE 0.6MG TABLET PO SCH ×2 (08:39→20:07)
[2020-10-08] MEDS: INSULIN GLARGINE UD 100 UNITS/ML SYR SUBCUT SCH ×2 (10:31→21:49)
[2020-10-08] MEDS: LEVOFLOXACIN 500MG PREMIX 100 ML IV SCH (10:39)
[2020-10-08 11:27] LABS: PLATELET ESTIMATE NORMAL
[2020-10-08] MEDS: MORPHINE SULFATE 2 MG/ML CPJ (NOT FOR IM USE) IV PRN (15:33)
[2020-10-08] MEDS: ENOXAPARIN 30MG/0.3ML SYR SUBCUT SCH (20:08)
[2020-10-09] VITALS (25 sets, daily range): BP systolic 93–150; BP diastolic 59–99
[2020-10-09] MEDS: INSULIN LISPRO 100 UNITS/ML SUBCUT SCH ×4 (00:11→17:43)
[2020-10-09] MEDS: ALBUTEROL (0.083%) 2.5MG/3ML NEB HHN SCH ×4 (01:21→20:35)
[2020-10-09] MEDS: MORPHINE SULFATE 2 MG/ML CPJ (NOT FOR IM USE) IV PRN ×2 (03:26→21:12)
[2020-10-09] MEDS: LORAZEPAM 2MG/ML CPJ IV PRN ×3 (05:28→22:35)
[2020-10-09] MEDS: BLOOD SUGAR DIAGNOSTIC STRIP TEST SCH ×4 (05:35→17:22)
[2020-10-09 06:25] LABS: HEMATOCRIT. 46.5 % (36.0-48.0); HEMOGLOBIN. 14.9 g/dL (12.0-16.0); MEAN CORPUSCULAR VOLUME 96.8 fL (81.0-99.0); MEAN PLATELET VOLUME 10.4 fl (7.4-10.4); PLATELET 130 x1000/uL (130-400); RED BLOOD CELL COUNT 4.81 mill/uL (4.2-5.4)
[2020-10-09 06:35] LABS: CHLORIDE 117 mEq/L (98-107)
[2020-10-09 08:29] LABS: PLATELET ESTIMATE NORMAL
[2020-10-09] MEDS: METHYLPREDNISOLONE SOD SUCC 40 MG/ML VIAL IV SCH ×2 (08:30→20:48)
[2020-10-09] MEDS: ENOXAPARIN 30MG/0.3ML SYR SUBCUT SCH ×2 (08:30→20:49)
[2020-10-09] MEDS: CHOLECALCIFEROL (D3) 1000 UNIT TABLET PO SCH (08:30)
[2020-10-09] MEDS: ZINC SULFATE 220 MG ( 50 ) CAPSULE PO SCH (08:30)
[2020-10-09] MEDS: ASPIRIN 81MG TABLET PO SCH (08:30)
[2020-10-09] MEDS: GUAIFENESIN/DM 600MG/30MG ER TAB 12HR PO SCH ×2 (08:30→20:48)
[2020-10-09] MEDS: ASCORBIC ACID 500 MG TABLET PO SCH ×2 (08:30→20:48)
[2020-10-09] MEDS: FAMOTIDINE 20MG TABLET PO SCH ×2 (08:31→20:48)
[2020-10-09] MEDS: COLCHICINE 0.6MG TABLET PO SCH ×2 (08:31→20:48)
[2020-10-09 09:43] LABS: BG CARBOXYHEMOGLOBIN 1.1 % (0.5-1.5); BG DEOXYHEMOGLOBIN 4.1 % (0.0-5.0); BG FRACTION INSPIRED OXYGEN 80; BG HCO3 ACT 31.9 mmol/L (22.0-26.0); BG METHEMOGLOBIN 0.2 % (0.0-1.5); BG OXYGEN SATURATION 95.8 % (92.0-98.5); BG OXYHEMOGLOBIN 94.6 % (94.0-97.0); BG PCO2 50.4 mmHg (35.0-45.0); BG PH 7.419 (7.350-7.450); BG PO2 80.1 mmHg (75.0-100.0); BG SAMPLE SITE RIGHT BRACHIAL; BG TOTAL HEMOGLOBIN 15.6 g/dL (12.0-18.0); BG TOTAL RESPIRATORY RATE 31 b/min; BG VENT MODE MASK - BIPAP
[2020-10-09] MEDS: LEVOFLOXACIN 500MG PREMIX 100 ML IV SCH (10:33)
[2020-10-09] MEDS: INSULIN GLARGINE UD 100 UNITS/ML SYR SUBCUT SCH ×2 (10:34→21:00)
[2020-10-10] VITALS: BP 118/77
[2020-10-10] MEDS: INSULIN LISPRO 100 UNITS/ML SUBCUT SCH
[2020-10-10] MEDS: BLOOD SUGAR DIAGNOSTIC STRIP TEST SCH (00:01)
== END 2020-10-10 00:55 | disposition short-term general hospital (02) | DRG 720 ==
LOC: ER 14:26 → MICUSO 17:28 → CVICU 10-06 12:07
PROVIDERS: ADMIT Internal Medicine; ATTEND Internal Medicine
PROC: 5A09457 Assistance with Respiratory Ventilation, 24-96 Consecutive Hours, Continuous Positive Airway Pressure (ICD-10-PCS; 2020-09-24)
PROC: 02HV33Z Insertion of Infusion Device into Superior Vena Cava, Percutaneous Approach (ICD-10-PCS; principal; 2020-09-25)
PROC: B548ZZA Ultrasonography of Superior Vena Cava, Guidance (ICD-10-PCS; 2020-09-25)
PROC: 5A09557 Assistance with Respiratory Ventilation, Greater than 96 Consecutive Hours, Continuous Positive Airway Pressure (ICD-10-PCS; 2020-09-26)
DX: A41.89 Other specified sepsis (principal); I10 Essential (primary) hypertension; J12.82 Pneumonia due to coronavirus disease 2019; J96.01 Acute respiratory failure with hypoxia; U07.1 COVID-19; R65.20 Severe sepsis without septic shock; J45.909 Unspecified asthma, uncomplicated; R00.1 Bradycardia, unspecified; D69.6 Thrombocytopenia, unspecified; E66.01 Morbid (severe) obesity due to excess calories; E87.1 Hypo-osmolality and hyponatremia; Z88.0 Allergy status to penicillin; Z79.899 Other long term (current) drug therapy; Z79.84 Long term (current) use of oral hypoglycemic drugs; Z68.37 Body mass index [BMI] 37.0-37.9, adult; E11.65 Type 2 diabetes mellitus with hyperglycemia; R19.7 Diarrhea, unspecified
CPT/HCPCS: 36415; 36600; 71045; 74018; 76937; 80048; 80053; 80061; 80076; 80305; 81003; 82270; 82375; 82550; 82553; 82607; 82728; 82746; 82805; 82962; 83036; 83540; 83550; 83605; 83615; 83735; 83880; 84100; 84145; 84484; 85025; 85027; 85379; 85384; 86140; 86141; 87426; 87493; 93005; 93970; 94640; 94660; 99285; A6261; C1725; C1893; J0456; J0696; J1100; J1265; J1650; J1815; J1885; J1956; J2060; J2270; J2405; J2920; J3490; J7040; J7060; J8540; U0003; A4315